=== PATIENT | female | born 1960 | race Caucasian/White ===

== ENCOUNTER 2017-02-25 17:57 | Emergency (ER) | payer BC ==
--- NOTE | 2017-02-25 18:36 | ERNOTE ---
Medical Problem HPI - General Chief Complaint: General Assessment Time Seen by Provider: 02/25/17 18:14 Source: patient Exam Limitations: no limitations - Immun/Allergies/Home Medications Immunizations: IMMUNIZATION HX Immunizations Up to Date Yes History of Influenza Vaccine Yes Hx Pneumococcal Vaccination Yes Allergies/Adverse Reactions: Allergies No Known Allergies Allergy (Unverified 02/25/17 18:10) Home Medications: HOME MEDICATIONS ALPRAZolam [Xanax] 0.5 mg PO TID PRN #30 tablet 02/25/17 [Last Taken Unknown] Aspirin [Ecotrin] 325 mg PO DAILY 02/25/17 [Last Taken Unknown] Canagliflozin/Metformin HCl [Invokamet 50-1,000 mg Tablet] 1 each PO BID [Last Taken Unknown] Lisinopril [Zestril] 5 mg PO BID 02/25/17 [Last Taken Unknown] Metoprolol Succinate [Toprol Xl] 25 mg PO TID 02/25/17 [Last Taken Unknown] - History of Present History Narrative: Patient has a history of anxiety and has been on alprazolam for 13 years. She has lived in [place] for a few years but moved back recently to be closer to family. She will see her prior PCP (Dr Monk) again and was told she should be able to get an appointment in March. There has been a lot of stressin her life with her son having his fifth open heart surgery and her going through cancer treatment. She continues to get her diabetes medication through her wire threader in [place] till she can get established here but needs a refill on her alprazolam as her doctor in [place] can't refill it. Review of Systems - Review of Systems Constitutional: Absent: recent illness, fever ENT: Present: no symptoms reported Respiratory: Present: no symptoms reported. Absent: shortness of breath Cardiology: Present: no symptoms reported. Absent: chest pain Gastrointestinal/Abdominal: Present: no symptoms reported Genitourinary: Present: no symptoms reported Musculoskeletal: Present: no symptoms reported Neurological: Present: emotional problems. Absent: headache - Patient's Past Medical History Patient History - Medical: Anxiety, Diabetes Type 2, Migraines Patient History - Cardiac/Respiratory: Hypertension Patient History - Cancer: No Hx of Cancer Patient History - Surgical Procedures: Patient History - Other: None LMP (females 10-50): Menopausal - Social History Living Situations: spouse Abuse History: No History of abuse Psych History: Hx of Anxiety Smoking Status: Former smoker Alcohol Use: none Drug Use: none - Immunizations Immunizations Up to Date: Yes Hx Pneumococcal Vaccination: Yes History of Influenza Vaccine: Yes Physical Exam - Physical Exam General Appearance: Present: wd/wn, alert, no apparent distress Head Exam: Present: normal inspection Respiratory: Present: no respiratory distress, normal breath sounds, no accessory muscle use, lungs clear Cardiovascular/Chest: Present: regular rate, rhythm, no murmur Neurological Exam: Present: alert, oriented, normal mood/affect Skin Exam: Present: normal color, warm/dry ED Progress - Vital Signs Patient's Vital Signs:: I have reviewed the patient's vital signs. Vital Signs: Vital Signs 02/25/17 18:02 Temperature 36.1 C L Pulse Rate 90 Respiratory 16 Rate Blood Pressure 160/93 O2 Sat by Pulse 100 Oximetry - Progress/Reassessment Chief Complaint: General Assessment Departure - Departure Clinical Impression: Anxiety Disposition: Home self-care Condition: Good Additional Instructions: follow up with Dr Monk as soon as you get an appointment, take your medications as instructed Referrals: Rogelio Monk MD [Staff Physician] - Prescriptions: ALPRAZolam [Xanax] 0.5 mg PO TID PRN #30 tablet PRN Reason: Anxiety
[2017-02-26 16:32] VITALS: BP 160/93
== END 2017-02-25 18:29 | disposition home or self-care (01) ==
LOC: ER 17:57
DX: F41.1 Generalized anxiety disorder (principal); E11.9 Type 2 diabetes mellitus without complications; I10 Essential (primary) hypertension